=== PATIENT | female | born 1980 | race African-American/Black ===

== ENCOUNTER 2017-09-14 16:35 | Inpatient (IN) | payer OTHER ==
[2017-09-14] MEDS ORDERED: BUTORPHANOL TARTRATE 1 MG/ML VIAL IVPUSH ONE (17:25)
[2017-09-14 17:27] VITALS: BMI 26.1
[2017-09-14] MEDS ORDERED: PROMETHAZINE HCL 25 MG/1 ML VIAL IVPUSH PRN (17:27)
[2017-09-14] MEDS ORDERED: DINOPROSTONE 10 MG VAGINAL SUPPOSITORY VG ONE (17:30)
[2017-09-14] MEDS ORDERED: TUBERCULIN PPD 5 TU/0.1ML SYRINGE (IN PATIENT USE ONLY) ID ONE (18:15)
[2017-09-14] MEDS ORDERED: BUTORPHANOL TARTRATE 1 MG/ML VIAL ONE ×2 (18:25)
[2017-09-14] MEDS ORDERED: PROMETHAZINE HCL 25 MG/1 ML VIAL ONE (18:25)
[2017-09-14 18:27] LABS: BASO % 0.1 % (0-2.0); EOS % 0.1 % (0-4.5); HEMATOCRIT 36.8 % (32.4-45.2); HEMOGLOBIN 12.9 GM/dL (10.7-15.3); MCH 29.9 pg (25.7-33.7); MCHC 34.9 g/dl (32.0-36.0); MEAN CELL VOLUME 85.5 fl (80-96); MONO % 4.4 % (3.8-10.2); NEUT % 83.4 % (42.8-82.8); PLATELET COUNT 203 K/MM3 (134-434); RBC 4.31 M/mm3 (3.60-5.2); RDW 13.4 % (11.6-15.6); WHITE BLOOD COUNT 10.3 K/mm3 (4.0-10.0)
[2017-09-14 18:40] LABS: INR 0.96 (0.82-1.09); PROTHROMBIN TIME (PATIENT) 10.9 SEC (9.7-13.0)
[2017-09-14 18:43] LABS: ACTIVATED PTT 27.1 SECONDS (25.2-36.5)
[2017-09-14 18:44] LABS: ANION GAP 10 (8-16); BLOOD UREA NITROGEN 10 mg/dL (7-18); CALCIUM 8.4 mg/dL (8.5-10.1); CHLORIDE 106 mmol/L (98-107); CO2 22 mmol/L (21-32); CREATININE 0.5 mg/dL (0.55-1.02); GLUCOSE,RANDOM 84 mg/dL (74-106); POTASSIUM 4.1 mmol/L (3.5-5.1); SODIUM 138 mmol/L (136-145)
[2017-09-14] MEDS: ELECTROLYTE-148 SOLN 1,000 ML IV SCH ×2 (20:33→23:40)
[2017-09-14] MEDS ORDERED: FENTANYL/BUPIVACAINE/NS/PF - PCEA - 50 ML DISP.SYRIN EP ONE (21:51)
[2017-09-14] MEDS ORDERED: NALOXONE HCL 0.4 MG/ML VIAL IVPUSH PRN (21:54)
[2017-09-14] MEDS: FENTANYL/BUPIVACAINE/NS/PF - PCEA - 50 ML DISP.SYRIN EP SCH (22:35)
[2017-09-15] MEDS ORDERED: OXYTOCIN 30 UNITS in 0.9% NS 30 UNIT/500 ML INFUS.BAG IVPB ONE (00:13)
[2017-09-15] MEDS: OXYTOCIN 30 UNITS in 0.9% NS 30 UNIT/500 ML INFUS.BAG IVPB SCH (00:15)
[2017-09-15] MEDS: ELECTROLYTE-148 SOLN 1,000 ML IV SCH (02:40)
[2017-09-15] MEDS ORDERED: FENTANYL/BUPIVACAINE/NS/PF - PCEA - 50 ML DISP.SYRIN EP ONE (03:23)
--- NOTE | 2017-09-15 03:51 | PN ---
Progress Note (short form) - Note Progress Note: cx 9 cm, 100 vx 0 , mi, occasional variable decel to 90 with good btb variability ,and recovery , LT side , o2 , pitocin has stopped previously , will cont, to monitor FHR, except delivery soon
[2017-09-15] MEDS ORDERED: LIDOCAINE HCL 1% PRESERVATIVE FREE - 30ML VIAL ONE (03:52)
[2017-09-15] MEDS ORDERED: OXYTOCIN 20 UNITS in 0.9% NS 20 UNIT/1,000 ML INFUS.BAG IV ONE ×2 (03:52→07:24)
--- NOTE | 2017-09-15 04:02 | HP ---
Past Medical History - Primary Care Physician PCP:: Gonzalo Spring (09/14/17 6 pm) - Admission Chief Complaint: 40.3 weeks, labor History of Present Illness: 36 yo f g 1p0 edc by sono 09/11/17 c/o contraction , cx closed 80 vx -1 mi, fhr cat 1, irregular contraction q 5 to 6 min History Source: Patient Limitations to Obtaining History: No Limitations - Past Medical History ...: 2 ...Para: 0 ...Term: 0 ...: 0 ...Spon : 0 ...Induced : 1 ...Multiple Gestation: 0 ...LMP: 12/09/16 ... Weeks Gestation by Dates: 39.6 ...EDC by Dates: 09/15/17 ...EDC by Sono: 09/11/17 Additional OB History: hx of oligohydramnions - Past Surgical History Past Surgical History: Yes: Oopherectomy (ovarian cyst removed 2007) Hx Myomectomy: No Hx Transabdominal Cerclage: No - Smoking History Smoking history: Never smoked Have you smoked in the past 12 months: No - Alcohol/Substance Use Hx Alcohol Use: No History of Substance Use: reports: None - Social History Usual Living Arrangement: Yes: With Spouse History of Recent Travel: No Home Medications - Allergies Allergies/Adverse Reactions: Allergies Allergy/AdvReac Type Severity Reaction Status Date / Time apple Allergy Mild Hives Verified 09/14/17 17:12 carrot Allergy Mild Hives Verified 09/14/17 17:12 orange Allergy Mild Hives Verified 09/14/17 17:12 shrimp Allergy Mild Hives Verified 09/14/17 17:12 strawberry Allergy Mild Hives Verified 09/14/17 17:12 tree nut Allergy Mild Hives Verified 09/14/17 17:12 - Home Medications Home Medications: Ambulatory Orders Vitamins (Sjr) - 1 tab PO DAILY 09/14/17 Review of Systems - Review of Systems Constitutional: reports: No Symptoms Eyes: reports: No Symptoms HENT: reports: No Symptoms Neck: reports: No Symptoms Cardiovascular: reports: No Symptoms Respiratory: reports: No Symptoms Gastrointestinal: reports: No Symptoms Genitourinary: reports: No Symptoms Breasts: reports: No Symptoms Reported Musculoskeletal: reports: No Symptoms Integumentary: reports: No Symptoms Neurological: reports: No Symptoms Endocrine: reports: No Symptoms Hematology/Lymphatic: reports: No Symptoms Psychiatric: reports: No Symptoms Physical Exam - Maternity Vital Signs: Vital Signs Temperature 98.6 F 09/15/17 02:05 Pulse Rate 83 09/15/17 03:00 Respiratory Rate 18 09/15/17 03:00 Blood Pressure 112/65 09/15/17 03:00 O2 Sat by Pulse Oximetry (%) 100 09/15/17 03:00 Constitutional: Yes: Well Nourished, No Distress, Calm Eyes: Yes: WNL, Conjunctiva Clear, EOM Intact HENT: Yes: WNL, Atraumatic, Normocephalic Neck: Yes: WNL, Supple, Trachea Midline Cardiovascular: Yes: WNL, Regular Rate and Rhythm Breast(s): Yes: WNL - Abdominal Exam/OB Fundal Height: 38 Number of Fetuses: Single Presentation: Vertex Contractions: Yes Regularity: Irregular Intensity: Mod/Strong Monitor Mode: External Category: I Accelerations: Uniform Decelerations: None - Vaginal Exam/OB Vaginal Bleediing: No Speculum Exam: No Dilatation (cm): closed Effacement (%): 80 Amniotic Membrane Status: Intact Presentation: Vertex/Position Station: -1 - Physical Exam Musculoskeletal: Yes: WNL Extremities: Yes: WNL Edema: LLE: Trace, RLE: Trace Deep Tendon Reflex Grade: Normal +2 ...Motor Strength: WNL Psychiatric: Yes: WNL - Labs Lab Results: CBC, BMP 09/14/17 17:45 09/14/17 17:45 Hemorrhage Risk Assessment - Risk Factors Medium Risk Factors: Yes: None High Risk Factors: Yes: None Risk Score: 1 Risk Level: Medium Risk Problem List - Problems (1) Post term over 40 weeks Code(s): O48.0 - POST-TERM (2) Labor established Code(s): WWJ2627 - Assessment/Plan plan admit for vaginal delivery , FHM , pain management
[2017-09-15] MEDS ORDERED: OXYTOCIN IV ONE (05:16)
[2017-09-15] MEDS ORDERED: NS IV ONE (05:16)
[2017-09-15] MEDS ORDERED: IBUPROFEN 600 MG TABLET (FP) PO ONE (05:48)
[2017-09-15] MEDS ORDERED: BENZOCAINE 20% 57 GM BOTTLE TP PRN (05:50)
[2017-09-15] MEDS ORDERED: BISACODYL 10 MG SUPP.RECT RC PRN (05:50)
[2017-09-15] MEDS ORDERED: WITCH HAZEL 50% (TUCKS) 40 PAD/JAR PAD TP PRN (05:50)
[2017-09-15] MEDS: IBUPROFEN 600 MG TABLET (FP) PO PRN ×5 (05:50→22:05)
[2017-09-15] MEDS ORDERED: METHYLERGONOVINE MALEATE 0.2 MG/1 ML AMP IM PRN (05:50)
[2017-09-15] MEDS ORDERED: oxyCODONE HCL 5 MG TABLET PO PRN (05:50)
[2017-09-15] MEDS ORDERED: BENZOCAINE 28 GM HEMORRHOIDAL OINTMENT TP PRN (05:50)
--- NOTE | 2017-09-15 05:50 | PN ---
Progress Note (short form) - Note Progress Note: 430 am full 100 vx 2+ vx , fhr car 2, with good BTBv , variable decel , good recovery Problem List - Problems (1) Post term over 40 weeks Code(s): O48.0 - POST-TERM (2) Labor established Code(s): NNC3782 -
--- NOTE | 2017-09-15 05:56 | PN ---
Delivery - Delivery Vaginal Delivery: Spontaneous Type of Anesthesia: Epidural Episiotomy/Laceration: Midline (cx fully dilated , head on pernium . median episiotomy done , head delivered STEVEN.ant. and post .shoulder with no difficulty , cord around legs reduced , live baby boy, 9/9 median episiotomy in 3 layers with 2 chromic , rectal exam negative, ebl 300cc , no complication) Delivery, Single - [place] Feeding Plan Initial Plan: Exclusive throughout hospitalization
[2017-09-15] MEDS ORDERED: OXYTOCIN 20 UNITS in 0.9% NS 20 UNIT/1,000 ML INFUS.BAG IV SCH (06:30)
[2017-09-15] MEDS: PRENATAL VITAMINS W/ FOLIC ACID TABLET (FP) PO SCH (09:26)
[2017-09-15] MEDS: FERROUS SO4 325 MG TABLET (FP) PO SCH ×2 (09:26→22:05)
[2017-09-15] MEDS: ACETAMINOPHEN 325 MG TABLET (FP) PO PRN ×4 (10:19→22:04)
[2017-09-15] MEDS: SENNOSIDES/DOCUSATE COMBO (SENNA PLUS) TABLET (UD) PO PRN (22:05)
[2017-09-16] MEDS: FENTANYL/BUPIVACAINE/NS/PF - PCEA - 50 ML DISP.SYRIN EP SCH (01:30)
[2017-09-16] MEDS: ELECTROLYTE-148 SOLN 1,000 ML IV SCH (01:30)
[2017-09-16] MEDS: OXYTOCIN 30 UNITS in 0.9% NS 30 UNIT/500 ML INFUS.BAG IVPB SCH (01:31)
[2017-09-16] MEDS: ACETAMINOPHEN 325 MG TABLET (FP) PO PRN ×3 (06:09→19:17)
[2017-09-16] MEDS: IBUPROFEN 600 MG TABLET (FP) PO PRN ×3 (06:09→19:17)
[2017-09-16 07:55] LABS: BASO % 0.2 % (0-2.0); EOS % 0.4 % (0-4.5); HEMATOCRIT 30.9 % (32.4-45.2); HEMOGLOBIN 10.6 GM/dL (10.7-15.3); LYMPH % 22.9 % (8-40); MCH 29.6 pg (25.7-33.7); MCHC 34.4 g/dl (32.0-36.0); MEAN CELL VOLUME 86.2 fl (80-96); MONO % 5.2 % (3.8-10.2); NEUT % 71.3 % (42.8-82.8); PLATELET COUNT 174 K/MM3 (134-434); RBC 3.59 M/mm3 (3.60-5.2); RDW 13.6 % (11.6-15.6)
[2017-09-16] MEDS ORDERED: DIPHTH,PERTUSS(ACELL),TET 0.5 ML DISP.SYRIN IM ONE (10:00)
[2017-09-16] MEDS: FERROUS SO4 325 MG TABLET (FP) PO SCH ×2 (10:30→21:45)
[2017-09-16] MEDS: PRENATAL VITAMINS W/ FOLIC ACID TABLET (FP) PO SCH (10:30)
[2017-09-16] MEDS: SENNOSIDES/DOCUSATE COMBO (SENNA PLUS) TABLET (UD) PO PRN (21:47)
[2017-09-17] MEDS: IBUPROFEN 600 MG TABLET (FP) PO PRN ×2 (00:05→05:23)
[2017-09-17] MEDS: ACETAMINOPHEN 325 MG TABLET (FP) PO PRN ×2 (00:05→05:23)
--- NOTE | 2017-09-17 02:11 | PN ---
Post Progress Note - Subjective Subjective: Patient without acute complaints. Reports tolerating oral intake without nausea or vomiting. Ambulating without dizziness. Denies fevers or chills. Pain well controlled with oral pain medication. without difficulty. Passing flatus. Post Day: 2 Type of Delivery: Vital Signs: Vital Signs Temperature 98.7 F 09/16/17 22:00 Pulse Rate 72 09/16/17 22:00 Respiratory Rate 18 09/16/17 22:00 Blood Pressure 110/59 09/16/17 22:00 O2 Sat by Pulse Oximetry (%) 100 09/15/17 08:10 Breast Exam: Yes: Engorged Uterus: Yes: Fundus Firm, Fundus below umbilicus Abdomen/GI: Yes: Abdomen soft, Passing flatus, Tolerating PO. No: Abdominal Distention, Tender Lochia: Yes: Rubra Lochia, amount: Small Extremities: Yes: Calves non-tender. No: Calf tenderness, Edema Perineum: Yes: Laceration Activity: Ambulating - Labs Labs: CBC WBC 12.0 K/mm3 (4.0-10.0) H 09/16/17 07:00 RBC 3.59 M/mm3 (3.60-5.2) L 09/16/17 07:00 Hgb 10.6 GM/dL (10.7-15.3) L 09/16/17 07:00 Hct 30.9 % (32.4-45.2) L D 09/16/17 07:00 MCV 86.2 fl (80-96) 09/16/17 07:00 MCH 29.6 pg (25.7-33.7) 09/16/17 07:00 MCHC 34.4 g/dl (32.0-36.0) 09/16/17 07:00 RDW 13.6 % (11.6-15.6) 09/16/17 07:00 Plt Count 174 K/MM3 (134-434) 09/16/17 07:00 MPV 8.0 fl (7.5-11.1) 09/16/17 07:00 Absolute Neuts (auto) 8.6 # 09/16/17 07:00 Neutrophils % 71.3 % (42.8-82.8) 09/16/17 07:00 Lymphocytes % 22.9 % (8-40) D 09/16/17 07:00 Monocytes % 5.2 % (3.8-10.2) 09/16/17 07:00 Eosinophils % 0.4 % (0-4.5) D 09/16/17 07:00 Basophils % 0.2 % (0-2.0) 09/16/17 07:00 Nucleated RBC % 0 % (0-0) 09/16/17 07:00 Assessment/Plan 36 yo PPD # 2 s/p , afebrile, vital signs stable, doing well 1. Patient stable for discharge home today. 2. Patient encouraged to contact MD for: - Severe pain not controlled by oral pain medication - Fevers or chills - Nausea or vomiting, intolerance of oral intake 3. Patient to follow up in office in 4-6 weeks for visit
--- NOTE | 2017-09-17 02:12 | DS ---
Physical Exam-INTER COM INSTALLER Vital Signs: Vital Signs Temperature 98.7 F 09/16/17 22:00 Pulse Rate 72 09/16/17 22:00 Respiratory Rate 18 09/16/17 22:00 Blood Pressure 110/59 09/16/17 22:00 O2 Sat by Pulse Oximetry (%) 100 09/15/17 08:10 Labs: CBC, BMP 09/16/17 07:00 09/14/17 17:45 Delivery - Delivery Vaginal Delivery: Spontaneous Type of Anesthesia: Epidural Episiotomy/Laceration: Midline EBL (cc): 300 Delivery, Single - Stages of Labor Date 1st Stage Initiatied: 09/15/17 Time 1st Stage Initiated: 02:00 Date 2nd Stage Initiated: 09/15/17 Time 2nd Stage Initiated: 04:30 Date of Delivery: 09/15/17 Time of Delivery: 05:13 Time Placenta Delivered: 05:20 - Condition of Urologic Surgeon/Machine Feller Present: Yes Name: Mauro Qureshi Infant Gender: Male Weight: 6 lb 3 oz Position: Left, OA Total Hours ROM (Hrs/Mins): 1hour/45min - 1 Minute Total Score: 9 5 Minutes Total Score: 9 - [place] Feeding Plan Initial Plan: Exclusive throughout hospitalization Discharge Summary Reason For Visit: LABOR Current Active Problems Labor established (Acute) Post term over 40 weeks (Acute) Vaginal delivery (Acute) Procedures: Principal: vaginal delivery Hospital Course: Patient was admitted in labor PPD # 1 patient ambulated, voiding, passing gas, tolerating oral intake and with adequate pain control. Noted to have mild asymptomatic anemia She fulfilled all criteria for discharge PPD #2 Condition: Good - Instructions Diet, Activity, Other Instructions: Physical activity Resume your normal everyday activity as tolerated no heavy lifting or exercise until seen by your surgeon. You may walk unlimited sae of and climb stairs. You may resume driving the car when you feel safe and comfortable behind the wheel. No sexual activity as instructed. Diet There are no dietary restrictions. Eat healthy, high-fiber foods. Drink 6 to 8 glasses of liquid each day. This will assist in keeping your bowels are regular. Pain management You may take Tylenol or acetaminophen or Ibuprofen (for example, Motrin, Advil etc.) from my pain prescription medication is ordered should be taken as prescribed for moderate to severe pain. Call MD for any of the following: Severe pain not relieved by medication Fever of 101 or higher Excessive bleeding or drainage on dressing Inability to urinate Referrals: Gonzalo Spring MD [Staff Physician] - - Home Medications Comprehensive Discharge Medication List: Ambulatory Orders Vitamins (Sjr) - 1 tab PO DAILY 09/14/17 Ibuprofen [Motrin -] 600 mg PO QID #28 tablet 09/15/17 Sennosides/Docusate Sodium [Pericolace -] 1 each PO BID PRN #30 tablet 09/15/17
[2017-09-17 08:12] VITALS: BP 106/66; PULSE 64; TEMP 98.9
[2017-09-17] MEDS: PRENATAL VITAMINS W/ FOLIC ACID TABLET (FP) PO SCH (09:00)
[2017-09-17] MEDS: FERROUS SO4 325 MG TABLET (FP) PO SCH (09:00)
== END 2017-09-17 12:30 | disposition home or self-care (01) | DRG 775 ==
LOC: JLDR 16:35 → J3W 09-15 08:10
PROVIDERS: ADMIT Obstetrics & Gynecology; ATTEND Obstetrics & Gynecology
PROC: 10E0XZZ Delivery of Products of Conception, External Approach (ICD-10-PCS; principal; 2017-09-15)
PROC: 0W8NXZZ Division of Female Perineum, External Approach (ICD-10-PCS; 2017-09-15)
DX: O48.0 Post-term pregnancy (principal); Z3A.40 40 weeks gestation of pregnancy; Z37.0 Single live birth
CPT/HCPCS: 36415; 59025; 59409; 80048; 85025; 85610; 85730; 86593; 86850; 86900; 86901; 90715

== ENCOUNTER 2020-04-28 10:28 | Inpatient (IN) | payer OTHER ==
[2020-04-28 11:22] LABS: BASO % 0.4 % (0-2.0); EOS % 0.3 % (0-4.5); HEMATOCRIT 35.5 % (32.4-45.2); HEMOGLOBIN 12.5 GM/dL (10.7-15.3); LYMPH % 28.7 % (8-40); MCH 30.4 pg (25.7-33.7); MCHC 35.2 g/dl (32.0-36.0); MEAN CELL VOLUME 86.3 fl (80-96); MEAN PLT VOLUME 8.1 fl (7.5-11.1); MONO % 8.7 % (3.8-10.2); NEUT % 61.9 % (42.8-82.8); PLATELET COUNT 151 K/MM3 (134-434); RBC 4.11 M/mm3 (3.60-5.2); RDW 13.6 % (11.6-15.6); WHITE BLOOD COUNT 6.4 K/mm3 (4.0-10.0)
[2020-04-28 11:30] LABS: INR 0.94 (0.83-1.09); PROTHROMBIN TIME (PATIENT) 11.4 SEC (9.7-13.0)
[2020-04-28 11:33] LABS: ACTIVATED PTT 27.4 SECONDS (25.2-36.5)
[2020-04-28 11:40] VITALS: BMI 26.9
[2020-04-28 11:46] LABS: POTASSIUM 4.5 mmol/L (3.5-5.1)
[2020-04-28 11:47] LABS: CALCIUM 8.6 mg/dL (8.5-10.1)
[2020-04-28 11:48] LABS: BLOOD UREA NITROGEN 16.6 mg/dL (7-18)
[2020-04-28 11:51] LABS: CREATININE 0.5 mg/dL (0.55-1.3)
[2020-04-28] MEDS: DEXTROSE 5%-LACTATED RINGERS 1,000 ML IV SCH ×2 (12:19→15:56)
[2020-04-28] MEDS ORDERED: OXYTOCIN 30 UNITS in 0.9% NS 30 UNIT/500 ML INFUS.BAG IVPB ONE (12:20)
[2020-04-28] MEDS: OXYTOCIN 30 UNITS in 0.9% NS 30 UNIT/500 ML INFUS.BAG IVPB SCH (12:30)
[2020-04-28] MEDS ORDERED: FENTANYL/BUPIVACAINE/NS/PF - PCEA - 50 ML DISP.SYRIN EP ONE (19:26)
[2020-04-28] MEDS ORDERED: PCA PUMP NR ONE (19:28)
[2020-04-28] MEDS ORDERED: BUPIVACAINE HCL/PF 0.25% (2.5MG/ML) 10 ML VIAL ONE (19:43)
[2020-04-28] MEDS: FENTANYL/BUPIVACAINE/NS/PF - PCEA - 50 ML DISP.SYRIN EP SCH (20:25)
[2020-04-28] MEDS ORDERED: NALOXONE HCL 0.4 MG/ML VIAL IVPUSH PRN (21:21)
[2020-04-28] MEDS ORDERED: LIDO 2%/EPI 1:200000 PRESRVFRE (20 ML SDVIAL) ONE (22:10)
[2020-04-28] MEDS ORDERED: SODIUM BICARBONATE 8.4% 50 MEQ/50 ML VIAL ONE (22:10)
[2020-04-28] MEDS ORDERED: PHENYLEPHRINE HCL 10 MG/1 ML SINGLE DOSE VIAL ONE (22:13)
[2020-04-28] MEDS ORDERED: ePHEDrine SULFATE 50 MG/1 ML AMPULE ONE (22:13)
[2020-04-28] MEDS ORDERED: LIDOCAINE HCL 1% PRESERVATIVE FREE - 30ML VIAL ONE (22:34)
[2020-04-28] MEDS ORDERED: OXYTOCIN 10 UNITS/ML VIAL ONE (22:59)
[2020-04-29] MEDS ORDERED: WITCH HAZEL 50% (TUCKS) 40 PAD/JAR PAD TP PRN (00:03)
[2020-04-29] MEDS ORDERED: BISACODYL 10 MG SUPP.RECT RC PRN (00:03)
[2020-04-29] MEDS ORDERED: METHYLERGONOVINE MALEATE 0.2 MG/1 ML AMP IM PRN (00:03)
[2020-04-29] MEDS ORDERED: BENZOCAINE 28 GM HEMORRHOIDAL OINTMENT TP PRN (00:03)
[2020-04-29] MEDS ORDERED: BENZOCAINE 20% 57 GM BOTTLE TP PRN (00:03)
[2020-04-29] MEDS ORDERED: oxyCODONE HCL 5 MG TABLET PO PRN (00:05)
[2020-04-29] MEDS ORDERED: OXYTOCIN 20 UNITS in 0.9% NS 20 UNIT/1,000 ML INFUS.BAG IV SCH (00:15)
[2020-04-29] MEDS ORDERED: IBUPROFEN 600 MG TABLET (FP) PO ONE (02:38)
[2020-04-29] MEDS: IBUPROFEN 600 MG TABLET (FP) PO PRN ×5 (02:40→20:45)
[2020-04-29] MEDS: PRENATAL VITAMINS W/ FOLIC ACID TABLET (FP) PO SCH (09:37)
[2020-04-29] MEDS: FERROUS SO4 325 MG TABLET (FP) PO SCH ×2 (09:37→21:20)
[2020-04-29] MEDS: ACETAMINOPHEN 325 MG TABLET (FP) PO PRN ×3 (10:50→20:44)
[2020-04-29] MEDS: OXYTOCIN 30 UNITS in 0.9% NS 30 UNIT/500 ML INFUS.BAG IVPB SCH (19:33)
[2020-04-29] MEDS: DEXTROSE 5%-LACTATED RINGERS 1,000 ML IV SCH (19:33)
[2020-04-29] MEDS: FENTANYL/BUPIVACAINE/NS/PF - PCEA - 50 ML DISP.SYRIN EP SCH (22:53)
[2020-04-30 08:30] LABS: BASO % 0.5 % (0-2.0); EOS % 1.1 % (0-4.5); HEMATOCRIT 29.3 % (32.4-45.2); HEMOGLOBIN 10.4 GM/dL (10.7-15.3); LYMPH % 28.8 % (8-40); MCH 30.9 pg (25.7-33.7); MCHC 35.5 g/dl (32.0-36.0); MEAN CELL VOLUME 87.2 fl (80-96); MEAN PLT VOLUME 8.2 fl (7.5-11.1); MONO % 6.3 % (3.8-10.2); NEUT % 63.3 % (42.8-82.8); PLATELET COUNT 140 K/MM3 (134-434); RBC 3.36 M/mm3 (3.60-5.2); RDW 13.9 % (11.6-15.6); WHITE BLOOD COUNT 7.8 K/mm3 (4.0-10.0)
[2020-04-30] MEDS: FERROUS SO4 325 MG TABLET (FP) PO SCH (09:48)
[2020-04-30] MEDS: ACETAMINOPHEN 325 MG TABLET (FP) PO PRN (09:48)
[2020-04-30] MEDS: PRENATAL VITAMINS W/ FOLIC ACID TABLET (FP) PO SCH (09:48)
[2020-04-30] MEDS: IBUPROFEN 600 MG TABLET (FP) PO PRN (09:49)
[2020-04-30 12:16] VITALS: BP 128/87; PULSE 75; TEMP 97.8
[2020-04-30] MEDS ORDERED: SENNOSIDES/DOCUSATE COMBO (SENNA PLUS) TABLET (UD) PO PRN (22:00)
== END 2020-04-30 16:20 | disposition home or self-care (01) | DRG 806 ==
LOC: JLDR 10:28 → J3W 04-29 03:38
PROVIDERS: ADMIT Obstetrics & Gynecology; ATTEND Obstetrics & Gynecology
PROC: 10E0XZZ Delivery of Products of Conception, External Approach (ICD-10-PCS; principal; 2020-04-29)
PROC: 0W8NXZZ Division of Female Perineum, External Approach (ICD-10-PCS; 2020-04-29)
PROC: 0HQ9XZZ Repair Perineum Skin, External Approach (ICD-10-PCS; 2020-04-29)
DX: O30.003 Twin pregnancy, unspecified number of placenta and unspecified number of amniotic sacs, third trimester (principal); O41.03X0 Oligohydramnios, third trimester, not applicable or unspecified; Z37.2 Twins, both liveborn; O70.0 First degree perineal laceration during delivery; Z3A.37 37 weeks gestation of pregnancy
CPT/HCPCS: 36415; 80048; 85025; 85610; 85730; 86780; 86850; 86900; 86901; 88307-TC; C9803; U0003